=== PATIENT | male | born 1975 | race African-American/Black ===

== ENCOUNTER 2017-07-05 20:45 | Emergency (ER) | payer OTHER ==
[~2017-07-05 20:45] MED LIST: Z.0.NO CURRENT MEDS
[2017-07-05 20:54] VITALS: BP 136/86; PULSE 101; RESP 20; TEMP 99; O2SAT 98
[2017-07-05] MEDS ORDERED: LOSA50TA PO (21:07)
[2017-07-05] MEDS ORDERED: ATOR20TA15 PO (21:07)
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
[2017-07-06] MEDS ORDERED: PERC5TAB12 PO (00:04)
[2017-07-06] MEDS ORDERED: IBUP1TAB7 PO (00:04)
[2017-07-06 00:20] VITALS: BP 130/86
== END 2017-07-06 00:21 | disposition home or self-care (01) ==
LOC: PHEFT 20:45
DX: T14.8XXA Other injury of unspecified body region, initial encounter (principal); V43.52XA Car driver injured in collision with other type car in traffic accident, initial encounter
CPT/HCPCS: 71020; 72125; 74176; 99285